=== PATIENT | female | born 1990 | race Caucasian/White ===

== ENCOUNTER 2017-05-05 12:30 | Emergency (ER) | payer OTHER ==
[2017-05-05 12:48] VITALS: BP 110/63; PULSE 80; TEMP 97.5; BMI 22.3
--- NOTE | 2017-05-05 13:21 | PDOC ---
History of Present Illness - General Chief Complaint: Cold Symptoms Stated Complaint: COLD SYMPTOMS Time Seen by Provider: 05/05/17 12:58 History Source: Patient Exam Limitations: No Limitations - History of Present Illness Initial Comments: 05/05/17 13:14 27 yr female with nasal congestion for 2 months, had a cough that has resolved. no fever no chills, neg nasal discharge or sinus tenderness. no PMHX Severity: reports: mild Past History - Past Medical History Allergies/Adverse Reactions: Allergies Allergy/AdvReac Type Severity Reaction Status Date / Time No Known Allergies Allergy Verified 05/05/17 12:45 Home Medications: Ambulatory Orders Triamcinolone Acetonide [Nasacort] 16.9 ml NS BID #1 bottle 05/05/17 - Suicide/Smoking/Psychosocial Hx Smoking History: Never smoked Hx Alcohol Use: No Drug/Substance Use Hx: No Respiratory Specific PMHX - Complaint Specific PMHX Angina: No Bronchitis: No Pneumonia: No Pulmonary Embolus: No TB (Tuberculosis): No Review of Systems - Review of Systems Able to Perform ROS?: Yes Is the patient limited Malaysian proficient: No Constitutional: No: Symptoms Reported HEENTM: Yes: See HPI, Nose Congestion Respiratory: Yes: Cough (dry ). No: Symptoms reported *Physical Exam - Vital Signs Last Vital Signs Temp Pulse Resp BP Pulse Ox 97.5 F L 80 18 110/63 100 05/05/17 12:45 05/05/17 12:45 05/05/17 12:45 05/05/17 12:45 05/05/17 12:45 - Physical Exam General Appearance: Yes: Nourished, Appropriately Dressed HEENT: positive: EOMI, HAYDE, Normal ENT Inspection, TMs Normal, Pharynx Normal, Nasal Congestion. negative: Sinus Tenderness Neck: positive: Supple. negative: Lymphadenopathy (R), Lymphadenopathy (L) Respiratory/Chest: positive: Lungs Clear, Normal Breath Sounds Cardiovascular: positive: Regular Rhythm, Regular Rate Gastrointestinal/Abdominal: positive: Normal Bowel Sounds, Soft Musculoskeletal: positive: Normal Inspection Extremity: positive: Normal Capillary Refill, Normal Inspection, Normal Range of Motion Integumentary: positive: Normal Color, Dry, Warm Neurologic: positive: Fully Oriented, Alert, Normal Mood/Affect, Normal Response , Motor Strength 5/5 Medical Decision Making - Medical Decision Making 11/11/17 13:15 cc: nasal congestion for 2 months no fever no cough will prescribe nasocort for congestion follow up wtih the ENT pt agrees with the plan of care all questions asked and answered at discharge. *DC/Admit/Observation/Transfer Diagnosis at time of Disposition: Nasal congestion - Discharge Dispostion Disposition: HOME Condition at time of disposition: Good - Prescriptions Prescriptions: Triamcinolone Acetonide [Nasacort] 16.9 ml NS BID #1 bottle - Referrals Referrals: Jose Elias Corrales MD [Primary Care Provider] - Nitin Hardwick MD [Staff Physician] - - Patient Instructions Additional Instructions: follow with the ENT listed below next week for follow up use the spray as directed for nasal congestion drink pleanty of water increase your vitamin C and Zinc intake to help boost your immune system - Post Discharge Activity
== END 2017-05-05 13:24 | disposition home or self-care (01) ==
LOC: JERFT 12:30
DX: R09.81 Nasal congestion (principal)
CPT/HCPCS: 99281-25

== ENCOUNTER 2017-08-25 10:39 | Emergency (ER) | payer OTHER ==
[2017-08-25 10:43] VITALS: BP 125/67; PULSE 75; TEMP 98.1; BMI 22.3
--- NOTE | 2017-08-25 11:24 | PDOC ---
History of Present Illness - General Chief Complaint: Rash Stated Complaint: RASH Time Seen by Provider: 08/25/17 11:01 - History of Present Illness Initial Comments: 08/25/17 11:19 CHIEF COMPLAINT: rash HISTORY OF PRESENT ILLNESS: 27 yo F presents to ED with intermittent rash x 3 days. 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 She denies having any current rash, stating "I thought I did this mornign but right now I don't see any." She denies any swelling of the mouth, throat, tongue, lips, or neck. She reports having an allergy test scheduled for the of this month.g No recent travel or sick contacts. PAST MEDICAL HISTORY: Denies past medical history FAMILY HISTORY: Denies SOCIAL HISTORY: Denies tobacco, alcohol, illicit drug use. SURGICAL HISTORY: Denies ALLERGIES: No known drug allergies REVIEW OF SYSTEMS General/Constitutional: Denies fever or chills. Denies weakness. HEENT: Denies change in vision. Denies ear pain or discharge. Denies sore throat. Cardiovascular: Denies chest pain or shortness of breath. Respiratory: Denies cough, wheezing, or hemoptysis. Gastrointestinal: Denies nausea, vomiting, diarrhea or constipation. Denies rectal bleeding. Genitourinary: Denies dysuria, frequency, or change in urination. Musculoskeletal: Denies joint or muscle swelling or pain. Denies neck or back pain. Skin and breasts: Denies rash or easy bruising. Neurologic: Denies headache, vertigo, loss of consciousness, or loss of sensation. PHYSICAL EXAM General Appearance: Well-appearing, appropriately dressed. No apparent distress. HEENT: EOMI, PERRLA, normal ENT inspection, normal voice, TMs normal, pharynx normal. No conjunctival pallor. No photophobia, scleral icterus. Neck: Supple. Trachea midline. No tenderness, rigidity, carotid bruit, stridor , lymphadenopathy, or thyromegaly. Respiratory/Chest: Lungs CTAB. No shortness of breath, chest tenderness, respiratory distress, accessory muscle use. No crackles, rales, rhonchi, stridor , wheezing, dullness Cardiovascular: RRR. S1, S2. No JVD, murmur, bradycardia, tachycardia. Vascular Pulses: Dorsalis-Pedis (R): 2+, Dorsalis-Pedis (L): 2+ Gastrointestinal/Abdominal: Normal bowel sounds. Abdomen soft, non-distended. No tenderness or rebound tenderness. No organomegaly, pulsatile mass, guarding , hernia, hepatomegaly, splenomegaly. Lymphatic: No adenopathy, tenderness. Musculoskeletal/Extremities: Normal inspection. FROM of all extremities, normal capillary refill. Pelvis Stable. No CVA tenderness. No tenderness to extremities, pedal edema, swelling, erythema or deformity. Integumentary: Appropriate color, dry, warm. No cyanosis, erythema, jaundice or rash Neurologic: peripheral vascular tech II-XII intact. Fully oriented, alert. Appropriate mood/affect. Motor strength 5/5. No appreciable EOM palsy, facial droop or sensory deficit. Past History - Past Medical History Allergies/Adverse Reactions: Allergies Allergy/AdvReac Type Severity Reaction Status Date / Time No Known Allergies Allergy Verified 08/25/17 10:43 Home Medications: Ambulatory Orders Triamcinolone Acetonide [Nasacort] 16.9 ml NS BID #1 bottle 05/05/17 Diphenhydramine HCl [Benadryl -] 25 mg PO Q6H PRN #28 capsule 08/25/17 EPINEPHrine (EPI-PEN 0.3MG) [Epipen 0.3MG -] 0.3 mg IM ASDIR #2 pens 08/25/17 COPD: No - Suicide/Smoking/Psychosocial Hx Smoking History: Never smoked Hx Alcohol Use: Yes Drug/Substance Use Hx: No *Physical Exam - Vital Signs Last Vital Signs Temp Pulse Resp BP Pulse Ox 98.1 F 75 16 125/67 98 08/25/17 10:41 08/25/17 10:41 08/25/17 10:41 08/25/17 10:41 08/25/17 10:41 *DC/Admit/Observation/Transfer Diagnosis at time of Disposition: Rash - Discharge Dispostion Admit: No - Prescriptions Prescriptions: Diphenhydramine HCl [Benadryl -] 25 mg PO Q6H PRN #28 capsule PRN Reason: itching EPINEPHrine (EPI-PEN 0.3MG) [Epipen 0.3MG -] 0.3 mg IM ASDIR #2 pens - Referrals Referrals: Kelly Villalta MD [Staff Physician] - - Patient Instructions Printed Discharge Instructions: DI for Rash Additional Instructions: Please take medications as prescribed. If you develop ANY swelling of the mouth, throat, lips, tongue, face, or neck, or develop any difficulty breathing, please use the epipen immediately and go to the nearest emergency room. Please keep your appointment for the allergy test as scheduled and follow up with your primary care doctor as needed. - Post Discharge Activity
== END 2017-08-25 11:39 | disposition home or self-care (01) ==
LOC: JERFT 10:39
DX: R21 Rash and other nonspecific skin eruption (principal)
CPT/HCPCS: 99281-25

== ENCOUNTER 2018-10-04 20:30 | Emergency (ER) | payer OTHER ==
[2018-10-04 20:50] VITALS: BP 136/74; PULSE 101; TEMP 97.6; BMI 21.9
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
[2018-10-04] MEDS ORDERED: ACETAMINOPHEN 500 MG TABLET (FP) PO ONE (23:46)
[2018-10-04] MEDS ORDERED: ACETAMINOPHEN 325 MG TABLET (FP) ONE (23:48)
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
[2018-10-05 01:12] LABS: EPI CELLS 9.8 /HPF (0-5/HPF); URINE APPEARANCE CLOUDY; URINE BACTERIA 369.4 /hpf (NEGATIVE); URINE BILIRUBIN NEGATIVE (NEGATIVE); URINE CASTS 107 /hpf (0-8); URINE COLOR DK YELLOW; URINE GLUCOSE (UA) NEGATIVE (NEGATIVE); URINE KETONE TRACE (NEGATIVE); URINE LEUK ESTERASE 3+ (NEGATIVE); URINE NITRITE NEGATIVE (NEGATIVE); URINE PROTEIN NEGATIVE (NEGATIVE); URINE RBC 4 /hpf (0-4); URINE WBC 70 /hpf (0-5)
[2018-10-05 01:13] LABS: HCG,QUALITATIVE URINE Negative
[2018-10-05] MEDS ORDERED: CEPHALEXIN MONOHYDRATE 500 MG CAPSULE (UD) PO ONE (02:28)
[2018-10-05] MEDS ORDERED: CEPHALEXIN MONOHYDRATE 500 MG CAPSULE (UD) ONE (02:42)
== END 2018-10-05 02:43 | disposition home or self-care (01) ==
LOC: JERFT 20:30 → JER 20:30
DX: S09.8XXA Other specified injuries of head, initial encounter (principal); R22.0 Localized swelling, mass and lump, head; Y04.2XXA Assault by strike against or bumped into by another person, initial encounter; Y93.89 Activity, other specified; Y92.480 Sidewalk as the place of occurrence of the external cause; Y99.8 Other external cause status; Y07.9 Unspecified perpetrator of maltreatment and neglect
CPT/HCPCS: 70450-TC; 71045-TC-FY; 72125-TC; 81003; 84703; 99282-25

== ENCOUNTER 2019-06-24 12:04 | Emergency (ER) | payer OTHER ==
[2019-06-24 12:23] VITALS: BP 105/69; PULSE 88; TEMP 97.8; BMI 23.1
--- NOTE | 2019-06-24 12:43 | PDOC ---
History of Present Illness - General Chief Complaint: Pain Stated Complaint: RT FOOT PAIN Time Seen by Provider: 06/24/19 12:24 History Source: Patient Exam Limitations: No Limitations Past History - Travel Traveled outside of the country in the last 30 days: No Close contact w/someone who was outside of country & ill: No - Past Medical History Allergies/Adverse Reactions: Allergies Allergy/AdvReac Type Severity Reaction Status Date / Time No Known Allergies Allergy Verified 06/24/19 12:42 Home Medications: Ambulatory Orders Triamcinolone Acetonide [Nasacort] 16.9 ml NS BID #1 bottle 05/05/17 Diphenhydramine HCl [Benadryl -] 25 mg PO Q6H PRN #28 capsule 08/25/17 EPINEPHrine (EPI-PEN 0.3MG) [Epipen 0.3MG -] 0.3 mg IM ASDIR #2 pens 08/25/17 Cephalexin Monohydrate [Keflex -] 500 mg PO BID 7 Days #14 capsule 10/05/18 COPD: No - Psycho Social/Smoking Cessation Hx Smoking History: Never smoked Have you smoked in the past 12 months: No Information on smoking cessation initiated: No Hx Alcohol Use: No Drug/Substance Use Hx: No Review of Systems - Review of Systems Able to Perform ROS?: Yes Comments:: 06/24/19 13:51 CONSTITUTIONAL: Absent: fever, chills, diaphoresis, generalized weakness, malaise, loss of appetite MUSCULOSKELETAL: Present: Right foot pain absent: myalgia, joint swelling SKIN: Absent: rash, itching, pallor NEUROLOGIC: Absent: headache, focal weakness or paresthesias, dizziness, unsteady gait, seizure, mental status changes, bladder or bowel incontinence PSYCHIATRIC: Absent: anxiety, depression, suicidal or homicidal ideation, hallucinations. Is the patient limited Maltese proficient: No *Physical Exam - Vital Signs Last Vital Signs Temp Pulse Resp BP Pulse Ox 97.8 F 88 18 105/69 98 06/24/19 12:20 06/24/19 12:20 06/24/19 12:20 06/24/19 12:20 06/24/19 12:20 - Physical Exam 06/24/19 13:51 GENERAL: The patient is awake, alert, and fully oriented, in no acute distress. HEAD: Normal with no signs of trauma. EYES: Pupils equal, round and reactive to light, extraocular movements intact, sclera anicteric, conjunctiva clear. EXTREMITIES: Tenderness to palpation over the right second/third metatarsal with some residual swelling and bruising. No pain over the medial or lateral malleolus of the right ankle. Negative squeeze test, negative Mittal test. Normal range of motion, no edema. NEUROLOGICAL: Normal speech, normal gait. PSYCH: Normal mood, normal affect. SKIN: Warm, Dry, normal turgor, no rashes or lesions noted. Medical Decision Making - Medical Decision Making 06/24/19 13:52 Patient is a 29-year-old female with no past medical history who presents to the ER today for right foot pain. The patient states approximately 2 weeks ago she tripped over her own 2 feet and plantar flexed her right foot. She states that since then the top of her foot has been very painful and she noticed it was bruised and swollen. She states she is able to walk with some discomfort. Denies numbness and tingling and weakness to the affected extremity. A/P: Right foot pain On exam patient with nurse palpation over the right second/third metatarsal. X-ray reveals an avulsion fracture over the second metatarsal Likely a sprain of the flexor tendons with avulsion fracture Patient will weight-bear as tolerated, Pillo wrap applied Discharge home with podiatry follow-up I discussed the physical exam findings, ancillary test results and final diagnoses with the patient. I answered all of the patient's questions. The patient was satisfied with the care received and felt comfortable with the discharge plan and treatment plan. The Patient agrees to follow up with the primary care physician/specialist within 24-72 hours. Return precautions were given. Discharge - Discharge Information Problems reviewed: Yes Clinical Impression/Diagnosis: Metatarsal fracture Qualifiers: Encounter type: initial encounter Metatarsal bone: second Fracture type: closed Fracture alignment: nondisplaced Laterality: right Qualified Code(s): S92.324A - Nondisplaced fracture of second metatarsal bone, right foot, initial encounter for closed fracture Condition: Stable Disposition: HOME - Admission No - Follow up/Referral Referrals: Bobo Cotter MD [Staff Physician] - - Patient Discharge Instructions Patient Printed Discharge Instructions: DI for Foot Fracture Additional Instructions: You broke a bone in your foot. It is small and almost likely heal on its own. Please wear the Pillo wrap for comfort and wear good fitting shoes. Please follow-up with podiatry within a week. A referral has been provided for you. You may take Motrin 600 mg every 6 hours as needed for pain. Return to the ER for worsening pain, inability to walk, or if you have any changes in your symptoms. - Post Discharge Activity
[2019-06-24] MEDS ORDERED: IBUPROFEN 600 MG TABLET (FP) PO ONE ×2 (12:50→12:56)
== END 2019-06-24 14:09 | disposition home or self-care (01) ==
LOC: JERFT 12:04
DX: S92.324A Nondisplaced fracture of second metatarsal bone, right foot, initial encounter for closed fracture (principal); W01.0XXA Fall on same level from slipping, tripping and stumbling without subsequent striking against object, initial encounter; Y93.89 Activity, other specified; Y92.89 Other specified places as the place of occurrence of the external cause
CPT/HCPCS: 73630-TC-RT-FY; 99281-25

== ENCOUNTER 2021-11-21 17:50 | Emergency (ER) | payer OTHER ==
[2021-11-21 17:57] VITALS: BP 123/82; PULSE 98; TEMP 98.1; BMI 23.0
[2021-11-21] MEDS ORDERED: ACETAMINOPHEN 500 MG TABLET (FP) PO ONE (19:41)
[2021-11-21] MEDS ORDERED: ACETAMINOPHEN 325 MG TABLET (FP) ONE (19:54)
[2021-11-21 20:33] LABS: EPI CELLS >36 /uL (0-25.1); HCG,QUALITATIVE URINE Negative; HYALINE CASTS 11 /uL (0-3.1); URINE APPEARANCE CLOUDY; URINE BACTERIA 714 /uL (0-1359); URINE BILIRUBIN NEGATIVE (NEGATIVE); URINE COLOR YELLOW; URINE GLUCOSE (UA) NEGATIVE (NEGATIVE); URINE KETONE NEGATIVE (NEGATIVE); URINE LEUK ESTERASE 3+ (NEGATIVE); URINE NITRITE NEGATIVE (NEGATIVE); URINE PROTEIN TRACE (NEGATIVE); URINE RBC 14 /uL (0-23.9); URINE UROBILINOGEN 0.2 mg/dL (0.2-1.0); URINE WBC 66 /uL (0-25.8)
[2021-11-21 20:36] LABS: BASO % 1.4 % (0-2.0); EOS % 1.3 % (0-4.5); HEMOGLOBIN 12.9 GM/dL (10.7-15.3); LYMPH % 27.6 % (8-40); MCH 30.1 pg (25.7-33.7); MEAN CELL VOLUME 88.6 fl (80-96); MEAN PLT VOLUME 8.3 fl (7.5-11.1); MONO % 8.8 % (3.8-10.2); NEUT % 60.9 % (42.8-82.8); PLATELET COUNT 225 10^3/uL (134-434); RBC 4.29 M/mm3 (3.60-5.2); WHITE BLOOD COUNT 5.3 K/mm3 (4.0-10.0)
[2021-11-21 20:53] LABS: BLOOD UREA NITROGEN 14.2 mg/dL (7-18); CALCIUM 8.6 mg/dL (8.5-10.1)
[2021-11-21 20:56] LABS: CREATININE 0.5 mg/dL (0.55-1.3)
[2021-11-21 20:58] LABS: BILIRUBIN,TOTAL 0.4 mg/dL (0.2-1); TOT PROT 7.4 g/dl (6.4-8.2)
[2021-11-21 22:05] LABS: YEAST FEW (NEGATIVE)
== END 2021-11-21 22:52 | disposition home or self-care (01) ==
LOC: JER 17:50
DX: N30.90 Cystitis, unspecified without hematuria (principal)
CPT/HCPCS: 36415; 76856-TC; 80053; 81003; 84703; 85025; 87086; 87186; 99284-25

== ENCOUNTER 2021-12-05 17:19 | Emergency (ER) | payer OTHER ==
[2021-12-05 18:08] VITALS: BP 119/70; PULSE 94; TEMP 98.1; BMI 23.3
== END 2021-12-05 22:01 | disposition home or self-care (01) ==
LOC: JER 17:19
DX: R07.81 Pleurodynia (principal)
CPT/HCPCS: 71046-TC-FY; 71101-TC-LT-FY; 99283-25

== ENCOUNTER 2023-08-06 11:15 | Emergency (ER) | payer OTHER ==
[2023-08-06 11:37] VITALS: BP 137/98; PULSE 105; RESP 18; TEMP 98.8; BMI 21.6
[2023-08-06] MEDS ORDERED: ACETAMINOPHEN 325 MG TABLET (FP) PO ONE (11:55)
== END 2023-08-06 14:01 | disposition home or self-care (01) ==
LOC: JERFT 11:15
DX: S92.352A Displaced fracture of fifth metatarsal bone, left foot, initial encounter for closed fracture (principal); M79.672 Pain in left foot; W18.40XA Slipping, tripping and stumbling without falling, unspecified, initial encounter; Y93.01 Activity, walking, marching and hiking; Y92.811 Bus as the place of occurrence of the external cause
CPT/HCPCS: 73610-TC-LT-FY; 73630-TC-LT; 99283-25

== ENCOUNTER 2023-12-17 14:55 | Emergency (ER) | payer OTHER ==
[2023-12-17 15:26] VITALS: TEMP 98.3; BMI 24.2
[2023-12-17 18:33] LABS: BASO % 1.3 % (0-2.0); EOS % 1.2 % (0-4.5); HEMATOCRIT 39.7 % (32.4-45.2); HEMOGLOBIN 13.2 GM/dL (10.7-15.3); INR 1.13 (0.83-1.09); MCH 29.7 pg (25.7-33.7); MCHC 33.3 g/dl (32.0-36.0); MEAN CELL VOLUME 89.1 fl (80-96); MEAN PLT VOLUME 8.1 fl (7.5-11.1); MONO % 9.3 % (3.8-10.2); NEUT % 43.2 % (42.8-82.8); PLATELET COUNT 240 10^3/uL (134-434); PROTHROMBIN TIME (PATIENT) 12.7 SEC (9.7-13.0); RBC 4.45 M/mm3 (3.60-5.2); RDW 13.1 % (11.6-15.6); WHITE BLOOD COUNT 3.7 K/mm3 (4.0-10.0)
[2023-12-17 18:36] LABS: ACTIVATED PTT 32.9 SECONDS (25.2-36.5)
[2023-12-17 18:44] LABS: POTASSIUM 3.2 mmol/L (3.5-5.1)
[2023-12-17 18:46] LABS: BLOOD UREA NITROGEN 7.9 mg/dL (7-18)
[2023-12-17 18:49] VITALS: BP 105/79; PULSE 80; RESP 18
[2023-12-17 18:49] LABS: CREATININE 0.6 mg/dL (0.55-1.3)
[2023-12-17 18:51] LABS: BILIRUBIN,TOTAL 0.6 mg/dL (0.2-1); TOT PROT 7.3 g/dl (6.4-8.2)
== END 2023-12-17 22:21 | disposition home or self-care (01) ==
LOC: JER 14:55
DX: U07.1 COVID-19 (principal); M79.661 Pain in right lower leg; R07.2 Precordial pain; R07.0 Pain in throat; M79.10 Myalgia, unspecified site; R51.9 Headache, unspecified; R21 Rash and other nonspecific skin eruption
CPT/HCPCS: 0241U-QW; 36415; 71046-TC-FY; 71275-TC; 80053; 84484; 84703; 85025; 85610; 85730; 93005; 93010; 93971-TC; 99285-25; Q9967